=== PATIENT | male | born 1975 | race Two or more races ===

== ENCOUNTER → 2022-05-21 | Emergency (ER) | payer OTHER ==
[~2022-05-21] VITALS: Ht 172.7 cm; Wt 97.5 kg
[~2022-05-21] MED LIST: VISTARIL50 MG PO
== END | disposition home or self-care (01) ==
LOC: ER 13:05
DX: S43.492A Other sprain of left shoulder joint, initial encounter (principal); X58.XXXA Exposure to other specified factors, initial encounter; Y93.H2 Activity, gardening and landscaping; Y92.89 Other specified places as the place of occurrence of the external cause; Y99.8 Other external cause status